=== PATIENT | female | born 1975 ===

== ENCOUNTER 2018-07-24 16:30 | Outpatient (CLI) | payer OTHER | END 2018-07-24 16:31 | disposition home or self-care (01) | LOC: C.MAMMO 16:30 | DX: Z12.31 Encounter for screening mammogram for malignant neoplasm of breast (principal) ==

== ENCOUNTER 2018-07-30 09:08 | Outpatient (CLI) | payer OTHER | END 2018-07-30 09:09 | disposition home or self-care (01) | LOC: C.LAB 09:08 | DX: Z00.00 Encounter for general adult medical examination without abnormal findings (principal) ==